=== PATIENT | female | born 1985 | race Caucasian/White ===

== ENCOUNTER 2017-02-01 11:04 | Inpatient (IN) | payer OTHER ==
[2017-02-01] VITALS (52 sets, daily range): BP systolic 109–146; BP diastolic 59–106; PULSE 79–116; RESP 1–18; TEMP 98–98.8
[~2017-02-01 11:04] MED LIST: IRON325T2 OR; PREN0.01 PO; PRENTAB62 PO
[2017-02-01] MEDS ORDERED: LACTATED RINGER'S 1000 ML INJ 1,000 ML IV PRN (11:54)
--- NOTE | 2017-02-01 11:54 | HHI.HP ---
HPI Chief Complaint Contraction pain Date Seen: Feb 01, 2017 Travel History International Travel<30 Days: No Contact w/Intl Traveler<30Days: No Known Affected Area: No History of Present Illness HPI This patient is 31-year-old white female G4 P 3 at [address] walters presents in labor, denies bleeding or rupture the membranes. Baby is active. heart rate tracing is reactive and she is sandra every 4-5 minutes Para: 3 : 4 History Obstetric History Obstetric History Previous vaginal deliveries Social History Alcohol Use: No Tobacco Use: No Substance Abuse: No Allergies-Medications (Allergen,Severity, Reaction): Coded Allergies: Penicillin (Verified Allergy, Severe, 06/07/11) Home Meds Reported Medications Ferrous Sulfate (Iron)325 Mg Tcc406 Mg OR 04/15/13 Vit W/ Ferrous Fumara ( Vitamins Plus)Plus Tab1 Po 02/07/13 Multivit/Min/Fol Ac/Iron/Pren ( Vit ( Plus)) Tab1 Tab PO DAILY 06/07/11 Review of Systems General / Constitutional: No: Fever, Weight Gain, Chills, Other Eyes: No: Diploplia, Blurred Vision, Visual changes, Pain, Photophobia HENT: No: Headaches, Vertigo, Lightheadedness Cardiovascular: No: Irregular Rhythm, Chest Pain or Discomfort, Palpitations, Tachycardia, Syncope, Varicosities, Edema, Cyanosis Respiratory: No: Cough, Short of Breath, Other Gastrointestinal: No: Nausea, Vomiting, Diarrhea Genitourinary: No: Decreased Urinary Output, Oliguria Musculoskeletal: No: Limited ROM, Weakness, Cramping, Edema, Pain Skin: No Rash, No Itching, No Dryness, No Lumps, No Change in Pigmentation, No Change in Nails, No Alopecia, No Lesions Neurologic: No: Weakness, Dizziness, Syncope, Focal Abnormalities, Coordination Problem, Headache, Slurred Speech, Seizures Psychiatric: No: Depression, Suicidal Ideations, Homicidal Ideation Endocrine: No: Heat Intolerance, Cold Intolerance, Polydipsia, Polyuria, Other Physical Exam Narrative GENERAL: Well-nourished, well-developed patient. SKIN: Warm and dry. HEAD: Normocephalic and atraumatic. EYES: No scleral icterus. No injection or drainage. ENT: No nasal drainage noted. Mucous membranes pink. Airway patent. NECK: Supple, trachea midline. No JVD. CARDIOVASCULAR: Regular rate and rhythm without murmurs, gallops, or rubs. RESPIRATORY: Breath sounds equal bilaterally. No accessory muscle use. BREASTS: Bilateral exam showed no masses , no retractions, no nipple discharge. ABDOMEN/GI: Abdomen soft, non-tender, bowel sounds present, no rebound, no guarding Gravid to [-37] weeks size Fundal Height: [-37] GENITOURINARY: External Genitalia: intact and normal in appearance BUS glands: [-] Cervix: [-] Dilatation: [-6] Effacement: [-60] Station: [-3] Presentation: [-vtx by us] Membranes: [intact ]BBOW Uterine Contractions: [q 4 min-] FHT's: Category: [1-] Baseline: [-144] Reactive: [-yes] Variability: [mod-] Decels: [none-] EXTREMITIES: No cyanosis or edema. BACK: Nontender without obvious deformity. No CVA tenderness. NEUROLOGICAL: Awake and alert. Motor and sensory grossly within normal limits. Five out of 5 muscle strength in all muscle groups. Normal speech. Assessment/Plan Assessment and Plan This patient is a 31-year-old white female G 4 P3 now 37 weeks and labor. Cervix is 6 cm 60% -3 bulging bag water vertex by ultrasound, heart rate tracing is reactive contractions are regular. Patient sees Dr. walters for care and the will notify him patient's arrival Plan for admission, labor management, vaginal delivery Jim Pierce II, MD Feb 01, 2017 11:54
[2017-02-01] MEDS ORDERED: MINERAL OIL 10 ML VIAL TOPICAL PRN (12:00)
[2017-02-01] MEDS ORDERED: LIDOCAINE HCL 1% 50 ML VIAL I-DERMAL PRN (12:00)
[2017-02-01] MEDS ORDERED: CITRIC ACID-SODIUM CITRATE LIQ 30 ML UDC PO SCH (12:00)
[2017-02-01] MEDS ORDERED: LIDOCAINE HCL 1% 50 ML VIAL INFIL PRN (12:00)
[2017-02-01] MEDS ORDERED: SODIUM CHLORID 0.9% 500 ML INJ 500 ML IV PRN (12:00)
[2017-02-01] MEDS ORDERED: OXYTOCIN 30 UNITS-500ML PREMIX 500 ML IV ONE (12:00)
[2017-02-01 12:14] LABS: AUTOMATED NEUTROPHIL # 9.8 TH/MM3 (1.8-7.7); BASOPHIL % 0.3 % (0.0-2.0); EOSINOPHIL # 0.1 TH/MM3 (0-0.4); EOSINOPHIL % 0.5 % (0.0-4.0); HEMATOCRIT 37.4 % (35.0-46.0); HEMO FLAGS DIFF FINAL; LYMPH % 14.8 % (9.0-44.0); LYMPHOCYTE # 1.9 TH/MM3 (1.0-4.8); MEAN CELL VOLUME 90.2 FL (80.0-100.0); MEAN CORPUSCULAR HEMOGLOBIN 31.7 PG (27.0-34.0); MEAN CORPUSCULAR HGB CONC 35.2 % (32.0-36.0); MONO % 7.8 % (0.0-8.0); NEUT % 76.6 % (16.0-70.0); PLATELET COUNT 194 TH/MM3 (150-450); RED BLOOD COUNT 4.15 MIL/MM3 (4.00-5.30); WHITE BLOOD COUNT 12.8 TH/MM3 (4.0-11.0)
[2017-02-01] MEDS ORDERED: SODIUM CHLOR 0.9% 1000 ML INJ 1,000 ML IV PRN (12:14)
[2017-02-01 12:15] LABS: BLOOD, URINE NEG (NEG); COMMENT (UR) CULT NOT INDICATED; CULTURE IF INDICATED CULT NOT INDICATED; GLUCOSE,URINE NEG (NEG); KETONE, URINE NEG (NEG); NITRITE,URINE NEG (NEG); SQUAMOUS EPITHELIAL CELL URINE 1 /hpf (0-5); URINE COLOR YELLOW (YELLW/STRAW)
[2017-02-01] MEDS ORDERED: fentaNYL 2MCG-BUPIV 0.125% INJ 100 ML ONE (12:31)
[2017-02-01] MEDS ORDERED: ePHEDrine/NS 25 MG/5 ML SYR ONE (12:33)
[2017-02-01] MEDS ORDERED: CLINDAMYCIN INJ 900 MG in SODIUM CHLORIDE 0.9% INJ 100 ML IV SCH ×5 (13:00→14:00)
[2017-02-01] MEDS: LACTATED RINGER'S 1000 ML INJ 1,000 ML IV SCH ×2 (13:46→13:51)
[2017-02-01] MEDS ORDERED: MEASLES, MUMPS, RUBELLA VACCINE 0.5 ML VIAL SQ ONE (16:00)
[2017-02-01] MEDS ORDERED: DIPHTH/TETANUS/ACEL PERTUSSIS (BOOSTER) 0.5 ML VIAL/PFS IM ONE (16:00)
[2017-02-01] MEDS ORDERED: DOCUSATE SODIUM 50 MG/SENNA 8.6 MG TAB PO PRN (16:45)
[2017-02-01] MEDS ORDERED: SODIUM CHLORIDE 0.9% FLUSH 10 ML FLUSH IV FLUSH PRN (16:45)
[2017-02-01] MEDS ORDERED: ZOLPIDEM TARTRATE 5 MG TAB PO PRN (16:45)
[2017-02-01] MEDS ORDERED: ALUMINUM/MAGNESIUM/SIMETH 30 ML CUP PO PRN (16:45)
[2017-02-01] MEDS ORDERED: WITCH HAZEL 50%/GLYCERIN 12.5% 40 PAD JAR TOPICAL PRN (16:45)
[2017-02-01] MEDS ORDERED: oxyCODONE/ACETAMINOPHEN 5 MG/325 MG TAB PO PRN ×2 (16:45)
[2017-02-01] MEDS ORDERED: ONDANSETRON ODT 4 MG TAB PO PRN (16:45)
[2017-02-01] MEDS ORDERED: BENZOCAINE 20% TOPICAL SPRAY 60 ML CAN TOPICAL PRN (16:45)
[2017-02-01] MEDS: IBUPROFEN 600 MG TAB PO PRN (18:19)
[2017-02-01] MEDS ORDERED: DO NOT ADMINISTER ANTICOAGULANTS PRN (20:15)
[2017-02-01] MEDS ORDERED: fentaNYL 2MCG-BUPIV 0.125% 100 ML EPIDURAL SCH (20:15)
[2017-02-01] MEDS ORDERED: NO SYSTEM NARCOTICS PRN (20:15)
[2017-02-01] MEDS ORDERED: ePHEDrine/NS 25 MG/5 ML SYR IV PRN (20:15)
[2017-02-01] MEDS ORDERED: SODIUM CHLORIDE 0.9% FLUSH 10 ML FLUSH IV FLUSH SCH (21:00)
[2017-02-01] MEDS: ACETAMINOPHEN 325 MG TAB PO PRN (22:38)
[2017-02-02] MEDS: IBUPROFEN 600 MG TAB PO PRN ×4 (02:20→21:19)
[2017-02-02] MEDS: ACETAMINOPHEN 325 MG TAB PO PRN ×2 (05:16→11:30)
[2017-02-02 06:32] LABS: AUTOMATED NEUTROPHIL # 8.3 TH/MM3 (1.8-7.7); BASOPHIL # 0.1 TH/MM3 (0-0.2); BASOPHIL % 0.8 % (0.0-2.0); EOSINOPHIL # 0.2 TH/MM3 (0-0.4); EOSINOPHIL % 1.5 % (0.0-4.0); HEMATOCRIT 33.1 % (35.0-46.0); HEMO FLAGS DIFF FINAL; LYMPH % 14.9 % (9.0-44.0); LYMPHOCYTE # 1.7 TH/MM3 (1.0-4.8); MEAN CELL VOLUME 91.4 FL (80.0-100.0); MEAN CORPUSCULAR HEMOGLOBIN 31.3 PG (27.0-34.0); MEAN CORPUSCULAR HGB CONC 34.2 % (32.0-36.0); MONO % 7.6 % (0.0-8.0); NEUT % 75.2 % (16.0-70.0); PLATELET COUNT 147 TH/MM3 (150-450); RED BLOOD COUNT 3.62 MIL/MM3 (4.00-5.30); RED CELL DISTRIBUTION WIDTH 13.4 % (11.6-17.2); WHITE BLOOD COUNT 11.1 TH/MM3 (4.0-11.0)
[2017-02-02 09:00] VITALS: BP 134/87; PULSE 84; RESP 16; TEMP 98.3
[2017-02-02] MEDS ORDERED: TRIAMTERENE/HCTZ 37.5 MG/25 MG TAB PO SCH (09:00)
[2017-02-02 19:30] VITALS: BP 140/84; PULSE 68; RESP 18; TEMP 98
[2017-02-03] MEDS: IBUPROFEN 600 MG TAB PO PRN (03:22)
[2017-02-03] MEDS: ACETAMINOPHEN 325 MG TAB PO PRN (05:59)
--- NOTE | 2017-02-03 08:30 | HHI.DCPOC ---
Discharge Care Plan Report Symptoms to Your Doctor -Temperate above 100.5 degrees -Redness, of incision or excessive or foul smelling drainage -Unusual pain or calf pain -Increased vaginal bleeding -Painful or difficulty urinating -Feelings of extreme sadness or anxiety after 2 weeks Goals to Promote Your Health * To prevent worsening of your condition and complications * To maintain your health at the optimal level Directions to Meet Your Goals Take your medications as prescribed Follow your dietary instruction Follow activity as directed Ensure plenty of rest for recovery Drink fluids for hydration Keep your appointments as scheduled Take your immunizations and boosters as scheduled If your symptoms worsen call your PCP, if no PCP go to Urgent Care Center or Emergency Room Smoking is Dangerous to Your Health. Avoid second hand smoke Call the 24-hour crisis hotline for domestic abuse at Jatin Clark MD Feb 03, 2017 08:30
--- NOTE | 2017-02-10 07:09 | MD ---
cc: CARLA FLORES M.D. ADMISSION DATE: 02/01/2017 DISCHARGE DATE: 02/03/2017 ADMISSION DIAGNOSIS at 37 weeks, active labor. DISCHARGE DIAGNOSIS at 37 weeks, active labor, delivered. HISTORY OF PRESENT ILLNESS/HOSPITAL COURSE A 31-year-old white female para 2-0-1-2, had EDC of 02/12/2017. She was admitted in active labor on the morning of 02/01/2017, received epidural anesthesia, progressed to a spontaneous vaginal delivery over a small first degree tear, a viable vigorous male, Apgars 8 and 9, weight 7 pounds, 14 ounces. did well, was discharged home in excellent condition on 02/03/2017. DISCHARGE INSTRUCTIONS She was carefully instructed in perineal incision care. She is to return to see me in six weeks and call if any abnormal symptoms. DISCHARGE MEDICATIONS She will take [id number] Motrin at home as well as her vitamins. She will call if any abnormal symptoms. The baby's name was Fili Steven and she was bottle feeding. Carla Flores MD JAW/SSB /8:37 AM /7:06 AM
== END 2017-02-03 09:30 | disposition home or self-care (01) | DRG 775 ==
LOC: HOBED 11:04 → H2EA 11:57 → H1EA 19:44
PROVIDERS: ADMIT Obstetrics & Gynecology; ATTEND Obstetrics & Gynecology
PROC: 10E0XZZ Delivery of Products of Conception, External Approach (ICD-10-PCS; principal; 2017-02-01)
PROC: 0HQ9XZZ Repair Perineum Skin, External Approach (ICD-10-PCS; 2017-02-01)
PROC: 3E0S3CZ (ICD-10-PCS; 2017-02-01)
PROC: 00HU33Z Insertion of Infusion Device into Spinal Canal, Percutaneous Approach (ICD-10-PCS; 2017-02-01)
DX: O70.0 First degree perineal laceration during delivery (principal); Z37.0 Single live birth; Z3A.37 37 weeks gestation of pregnancy
CPT/HCPCS: 59025; 81001; 85025; 99285; J2590; J7120